=== PATIENT | female | born 1945 | race Caucasian/White ===

== ENCOUNTER 2021-03-05 10:17 | Emergency (ER) | payer MEDICARE, OTHER, SELFPAY ==
[2021-03-05 10:20] VITALS: BP 174/91; PULSE 78; RESP 18; TEMP 36.2; O2SAT 99
--- NOTE | 2021-03-05 10:26 | DI.CT.S_ITS ---
PROCEDURE: CT HEAD/BRAIN WO CON INDICATIONS: Fall, left forehead hit table w/ deep lac. TECHNIQUE: Noncontrast 4.5 mm thick angled axial sections acquired from the foramen magnum to the vertex, with coronal and sagittal reformats. For radiation dose reduction, the following was used: automated exposure control, adjustment of mA and/or kV according to patient size. COMPARISON: None. FINDINGS: Image quality: Excellent. CSF spaces: Basal cisterns are patent. No extra-axial fluid collections. The ventricles are symmetric in size and shape. Brain: No intracranial bleeds or masses. There is cerebral volume loss for age, with resultant ventricular and sulcal prominence. There are periventricular and deep white matter chronic small vessel ischemic changes. There is intracranial internal carotid artery atherosclerosis. Skull and face: Calvarium and visualized facial bones appear intact, without suspicious lesions. Sinuses: Visualized sinuses and mastoids are clear. IMPRESSION: No acute intracranial abnormality. Dictated by: Bimal Ochoa M.D. on 03/05/2021 at 10:39 Approved by: Bimal Ochoa M.D. on 03/05/2021 at 10:45
[2021-03-05] MEDS: TET,DIPH,PERTUSS(ACELL),VAC/PF 0.5 ML SYRINGE IM (10:35)
--- NOTE | 2021-03-05 10:46 | ED.HEATRA ---
HPI - Head Injury General Chief complaint: Head Injury Stated complaint: fall last night/gash on forehead Time Seen by Provider: 03/05/21 10:32 Source: patient and family Mode of arrival: Ambulatory Limitations: no limitations History of Present Illness HPI Narrative: The patient was given a bed about 4:00 a.m. this morning to go the bathroom. She lost her balance and fell against a bedside table. She sustained a left forehead laceration. She denies dizziness, visual changes, focal neurologic deficits. There is no LOC. She has no confusion. She is not anticoagulated. She has no visual changes. She has no bleeding from her nose, mouth or ears. She denies neck pain. She has no peripheral weakness. There were no other injuries. Related Data Allergies Allergy/AdvReac Type Severity Reaction Status Date / Time No Known Drug Allergies Allergy Verified 03/05/21 10:27 Review of Systems Constitutional Constitutional: Denies body ache(s), Denies fatigue, Denies fever(s) and Reports headache(s) Eyes Eyes: Denies change in vision Comments: No obvious sign injury ENT Ears, Nose, Mouth, and Throat: Denies dizziness, Reports headache(s), Denies mouth lesions, Denies mouth pain, Denies nasal trauma and Denies neck pain Comments: Left forehead laceration. Left forehead and left periorbital contusion. Cardiovascular Cardiovascular: Denies chest pain, Denies syncope, Denies rapid heart rate and Denies dyspnea Respiratory Respiratory: Denies cough and Denies dyspnea Musculoskeletal Musculoskeletal: Denies neck pain Integumentary/Breasts Skin/Breast: Reports as per HPI Neurologic Neurologic: Denies dizziness, Denies syncope and Reports headache(s) Comments: No focal weakness or unsteadiness. Endocrine Endocrine: Denies fatigue Patient History Social History Smoking Status: Never smoker Smoking Status: Never smoker alcohol intake frequency: 0-2 drinks per day Substance Use Type: does not use Exam Initial Vital Signs Initial Vital Signs: Vital Signs Temperature 97.1 F L 03/05/21 10:20 Pulse Rate 78 03/05/21 10:20 Respiratory Rate 18 03/05/21 10:20 Blood Pressure 174/91 H 03/05/21 10:20 Pulse Oximetry 99 03/05/21 10:20 Const General: cooperative, healthy appearing and comfortable [facility] Head: other (5 cm Left forehead laceration) Ears: TM's normal bilaterally Nose: external nose normal and nares normal Mouth: oral mucosae normal Teeth and gingiva: dentition normal Throat: posterior oropharynx normal Eyes Pupils: PERRL EOM: EOM intact bilaterally Other: Left periorbital contusion. Procedures Laceration Repair Laceration 1: Time of procedure: 11:22 Site: face (Left forehead) Size (cm): 5 Description: linear Depth: simple, single layer Local Anesthetic: lidocaine 1% Amount of anesthesia used (mL): 4 Pre-repair: wound explored and irrigated extensively Skin layer closed with: nylon Size (cm): 5-0 Number of sutures: 5 Technique: simple, interrupted Course Course Course Narrative: After laceration repair, the wound was cleansed and bandaged by the nurse prior to discharge. Orders Ordered: ED Orders 03/05/21 10:26 CT head/brain wo con Stat Discontinued Medications Acetaminophen (Acetaminophen 325 Mg Tablet) 650 mg PO NOW ONE Stop: 03/05/21 12:00 Last Admin: 03/05/21 12:03 Dose: 650 mg Documented by: BARBY Bacitracin (Bacitracin Oint 0.9 Gm Pckt) 1 applic TOP NOW ONE Stop: 03/05/21 11:47 Last Admin: 03/05/21 12:03 Dose: 1 applic Documented by: BARBY Diphtheria/Tetanus/Acell Pertussis (Tet,Diph,Pertuss(Acell),Vac/Pf 0.5 Ml Syringe) 0.5 ml IM .ONCE ONE Stop: 03/05/21 10:27 Last Admin: 03/05/21 10:35 Dose: 0.5 ml Documented by: AMINA Lidocaine HCl (Lidocaine 1% (Pf)) 4 ml INJ NOW ONE Stop: 03/05/21 10:48 Last Admin: 03/05/21 10:55 Dose: 4 ml Documented by: AMINA Vital Signs Vital signs: Vital Signs - 8 hr 03/05/21 12:06 Pulse Rate 71 Respiratory Rate 18 Blood Pressure 143/67 H Pulse Oximetry 100 MDM - Head Injury Imaging Data CT scan - head: Radiologist's Impression: No acute intracranial process identified. Discharge Plan Departure Patient Disposition: Home Clinical Impression: Forehead laceration Qualifiers: Encounter type: initial encounter Qualified Code(s): S01.81XA - Laceration without foreign body of other part of head, initial encounter Instructions: DI for Laceration Repair Activity Restrictions/Additional Instructions: Keep the bandage on for 24 hours. After the bandages off he may bathe normally. Tylenol every 4 hours as needed for pain. I recommend applying ice packs over the site frequently for the next 2 days. Follow-up with your doctor in 7-10 days for suture removal. Return here as needed.
[2021-03-05] MEDS: LIDOCAINE 1% (PF) 4 ML INJ (10:55)
[2021-03-05] MEDS: BACITRACIN OINT 0.9 GM PCKT 1 APPLIC TOP (12:03)
[2021-03-05] MEDS: ACETAMINOPHEN 325 MG TABLET 650 MG PO (12:03)
[2021-03-05 12:06] VITALS: BP 143/67; PULSE 71; RESP 18; O2SAT 100
== END 2021-03-05 12:07 | disposition home or self-care (01) ==
PROVIDERS: Emergency Provider Emergency Medicine
DX: S01.81XA Laceration without foreign body of other part of head, initial encounter (principal); W01.190A Fall on same level from slipping, tripping and stumbling with subsequent striking against furniture, initial encounter; Z23 Encounter for immunization
CPT/HCPCS: 12052; 70450; 90471; 99284; 90715

== ENCOUNTER 2022-06-03 12:48 | Emergency (ER) | payer OTHER, SELFPAY ==
[2022-06-03] VITALS (11 sets, daily range): BP systolic 119–168; BP diastolic 57–89; PULSE 62–74; RESP 19–36; TEMP 36.1; O2SAT 98–100; BMI 32.1
--- NOTE | 2022-06-03 13:29 | DI.RAD.S_ITS ---
PROCEDURE: XR CHEST 1V INDICATIONS: chest pain TECHNIQUE: One view of the chest was acquired. COMPARISON: None. FINDINGS: Surgical changes and devices: Right shoulder arthroplasty is partially seen. Lungs and pleura: Mild diffuse lung disease. No dense consolidation or pleural effusion. Mediastinum: Mediastinal contours appear normal. Heart size is normal. Bones and chest wall: No suspicious bony lesions. Overlying soft tissues appear unremarkable. IMPRESSION: Mild diffuse lung disease could represent edema or atypical infection. Consider future imaging surveillance to assess for resolution. No focal consolidation or effusion. Dictated by: Topher Owens M.D. on 06/03/2022 at 14:03 Approved by: Topher Owens M.D. on 06/03/2022 at 14:04
[2022-06-03 13:55] LABS: Add Manual Diff / Slide Review NO; Basophils Absolute Auto 0 /uL (0-100); Basophils Percent Auto 0.7 % (0-2); Eosinophils Absolute Auto 100 /uL (0-450); Eosinophils Percent Auto 1.9 % (2-4); Hematocrit 34.9 % (36-46); Hemoglobin 11.8 g/dL (12.0-16.0); Lymphocytes Absolute Auto 900 /uL (1100-4500); Lymphocytes Percent Auto 25.8 % (25-40); Mean Corpuscular HGB Conc 33.7 % (30-36); Mean Corpuscular Hemoglobin 31.4 PG (26-34); Monocytes Absolute Auto 300 /uL (0-900); Monocytes Percent Auto 9.6 % (3-14); Neutrophils Absolute Auto 2100 /uL (1500-7000); Platelet Count 117 X10^3/uL (150-400); Red Blood Cell Count 3.75 X10^6/uL (4.0-5.2); Red Cell Distribution Width 14.1 % (11.6-14.8); White Blood Cell Count 3.4 X10^3/uL (4.5-11.0)
[2022-06-03 14:01] LABS: Prothrombin Time 11.9 SECONDS (10.1-12.7)
[2022-06-03 14:04] LABS: PTT Partial Thromboplastin Tim 37 SECONDS (26-36)
[2022-06-03 14:05] LABS: Alanine Aminotransferase 29 IU/L (<35); Albumin 4.2 g/dL (3.5-5.0); Albumin Globulin Ratio 1.4 (1.0-2.8); Alkaline Phosphatase 92 U/L (38-126); Aspartate Aminotransferase 38 IU/L (14-36); Bilirubin Total 0.9 mg/dL (0.2-1.3); Blood Urea Nitrogen 23 mg/dL (7-17); Calcium 8.6 mg/dL (8.4-10.2); Carbon Dioxide 27 mmol/L (22-32); Chloride 104 mmol/L (98-107); Estimated Glomerular Filt Rate > 60 mL/min (>60); Globulin 3.1 g/dL (1.7-4.1); Glucose 93 mg/dL (80-110); HEMOLYSIS < 15 (0-50); Lipase 151 U/L (23-300); Magnesium 2.3 mg/dL (1.6-2.3); Potassium 2.9 mmol/L (3.4-5.1); Sodium 143 mmol/L (137-145); Total Protein 7.3 g/dL (6.3-8.2)
[2022-06-03 14:11] LABS: Creatine Kinase 101 U/L (30-135)
[2022-06-03 14:17] LABS: Troponin I < 0.012 ng/mL (0.01-0.034)
[2022-06-03 14:26] LABS: CKMB % Relative Index 1.1 % (1.5-5.0)
[2022-06-03 14:54] LABS: NT-proBNP (BNP-Adult 18+) 607 pg/mL (<450)
[2022-06-03] MEDS: POTASSIUM CHLORIDE 20 MEQ/15 ML UDC 40 MEQ PO (16:05)
--- NOTE | 2022-06-03 16:26 | PC.NURSE ---
When giving patient medication I noted that the patient had rapid uncontrolled blinking occuring with left eye. Patient stated that they have facial spasms and gets Botox to stop them but that they are normally only on the right and never has occurred on the left. I informed Dr. Bradshaw and no new orders at this time.
[2022-06-03 16:40] LABS: COVID19 -Nasal RAPID Negative (Negative)
--- NOTE | 2022-06-03 17:56 | ED.DIZZY ---
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 She is visiting from [place]. She reports that she woke up this morning and immediately upon standing up she was little dizzy lasted for couple minutes and then resolved. She did not pass out or lose consciousness. She denies any chest pain or shortness of breath. She reports a 6 lb weight gain over a couple of days. She takes torsemide 60 mg daily 40 in the morning and 20 in the afternoon she is also on spironolactone. She reports that she is eating healthy because her sister is a ?health freak.? She denies any increasing abdominal swelling, but does report a definite increase in lower extremity edema. She says that she always has swelling in her legs but usually this bad. She has no orthopnea or exertional dyspnea no palpitations chest pain fever chills her other symptoms. Related Data Allergies Allergy/AdvReac Type Severity Reaction Status Date / Time No Known Drug Allergies Allergy Verified 03/05/21 10:27 Review of Systems Review of Systems ROS Unobtainable: All systems reviewed & are unremarkable except as noted in HPI and below Patient History Social History Smoking Status: Former smoker Smoking Status: Former smoker tobacco type: cigarettes alcohol intake frequency: 0-2 drinks per day Substance Use Type: does not use Exam Initial Vital Signs Initial Vital Signs: Vital Signs Temperature 96.9 F L 06/03/22 13:31 Pulse Rate 74 06/03/22 13:31 Respiratory Rate 22 06/03/22 13:31 Blood Pressure 136/68 06/03/22 13:31 Pulse Oximetry 99 06/03/22 13:31 Oxygen Delivery Method 06/03/22 13:31 GENERAL: Alert pleasant 68-year-old female and in no acute distress. HEENT: Head atraumatic,EOMI, pupils reactive, face symmetric, moist mucous membranes CARDIOVASCULAR: Regular rate and rhythm without murmurs, rubs or gallops. RESPIRATORY: Breath sounds equal bilaterally, no wheezes rales or rhonchi. ABDOMEN: Soft, nontender. Normoactive bowel sounds all 4 quadrants. No guarding or rebound. EXTREMITIES: Normal range of motion, no clubbing. +3 pitting edema. Neurovascularly intact NEUROLOGICAL: Alert and oriented x4.Normal gait and speech. SKIN: Warm, dry, no laceration, no petechiae, no rashes or lesions. Course Orders Ordered: ED Orders 06/03/22 16:10 COVID19 -Nasal RAPID/Pre-Proc Stat Discontinued Medications Aspirin (Aspirin 81 Mg Chew Tab) 324 mg PO NOW ONE Stop: 06/03/22 13:30 Last Admin: 06/03/22 13:47 Dose: Not Given Documented By: CHLOE Furosemide 60 mg/ Sodium (Chloride) 56 mls @ 112 mls/hr IV NOW ONE Stop: 06/03/22 18:15 Last Admin: 06/03/22 18:21 Dose: 112 mls/hr Documented By: CHLOE(2) Potassium Chloride (Potassium Chloride 20 Meq/15 Ml Udc) 40 meq PO NOW ONE Stop: 06/03/22 15:47 Last Admin: 06/03/22 16:05 Dose: 40 meq Documented By: RB Vital Signs Vital signs: Vital Signs - 8 hr 06/03/22 15:30 06/03/22 15:30 06/03/22 16:00 Pulse Rate 62 70 Respiratory Rate Blood Pressure 139/75 Pulse Oximetry 100 99 Oxygen Delivery Method 06/03/22 16:01 06/03/22 16:01 06/03/22 16:07 Pulse Rate 66 67 Respiratory Rate 19 Blood Pressure 164/70 H Pulse Oximetry 99 100 Oxygen Delivery Method 06/03/22 16:07 06/03/22 16:30 06/03/22 16:30 Pulse Rate 67 Respiratory Rate 29 H Blood Pressure 139/65 119/62 Pulse Oximetry 98 Oxygen Delivery Method 06/03/22 17:00 06/03/22 17:00 06/03/22 17:30 Pulse Rate 64 Respiratory Rate 35 H Blood Pressure 125/57 L 123/60 Pulse Oximetry 99 Oxygen Delivery Method 06/03/22 17:30 06/03/22 18:00 06/03/22 18:00 Pulse Rate 65 67 Respiratory Rate 28 H Blood Pressure 138/65 Pulse Oximetry 100 99 Oxygen Delivery Method 06/03/22 18:30 06/03/22 18:30 Pulse Rate 67 Respiratory Rate 36 H Blood Pressure 119/89 Pulse Oximetry 99 Oxygen Delivery Method Room Air MDM - Dizziness Lab Data 06/03/22 13:44 06/03/22 13:44 Labs: Lab Results 06/03/22 06/03/22 06/03/22 Range/Units 13:44 13:44 13:44 WBC 3.4 L (4.5-11.0) X10^3/uL RBC 3.75 L (4.0-5.2) X10^6/uL Hgb 11.8 L (12.0-16.0) g/dL Hct 34.9 L (36-46) % MCV 93.0 (80-100) fL MCH 31.4 (26-34) PG MCHC 33.7 (30-36) % RDW 14.1 (11.6-14.8) % Plt Count 117 L (150-400) X10^3/uL Neut % (Auto) 62.0 (50-75) % Lymph % (Auto) 25.8 (25-40) % Powell % (Auto) 9.6 (3-14) % Eos % (Auto) 1.9 L (2-4) % Baso % (Auto) 0.7 (0-2) % Neut # (Auto) 2100 (6795-0282) /uL Lymph # (Auto) 900 L (9968-6020) /uL Powell # (Auto) 300 (0-900) /uL Eos # (Auto) 100 (0-450) /uL Baso # (Auto) 0 (0-100) /uL PT 11.9 (10.1-12.7) SECONDS INR 1.0 (0.9-1.3) APTT 37 H (26-36) SECONDS Sodium 143 (137-145) mmol/L Potassium 2.9 L (3.4-5.1) mmol/L Chloride 104 (98-107) mmol/L Carbon Dioxide 27 (22-32) mmol/L BUN 23 H (7-17) mg/dL Creatinine 0.92 (0.52-1.04) mg/dL Estimated GFR > 60 (>60) mL/min BUN/Creatinine Ratio 25.0 H (6-22) Glucose 93 (80-110) mg/dL Calcium 8.6 (8.4-10.2) mg/dL Magnesium 2.3 (1.6-2.3) mg/dL Total Bilirubin 0.9 (0.2-1.3) mg/dL AST 38 H (14-36) IU/L ALT 29 (<35) IU/L Alkaline Phosphatase 92 (38-126) U/L Total Creatine Kinase 101 (30-135) U/L CK-MB (CK-2) 1.10 (<2.37) ng/mL CK-MB (CK-2) Rel Index 1.1 L (1.5-5.0) % Troponin I < 0.012 (0.01-0.034) ng/mL NT-Pro-B Natriuret Pep (<450) pg/mL Total Protein 7.3 (6.3-8.2) g/dL Albumin 4.2 (3.5-5.0) g/dL Globulin 3.1 (1.7-4.1) g/dL Albumin/Globulin Ratio 1.4 (1.0-2.8) Lipase 151 (23-300) U/L SARS-CoV-2 (PCR) (Negative) 06/03/22 06/03/22 Range/Units 13:44 16:10 WBC (4.5-11.0) X10^3/uL RBC (4.0-5.2) X10^6/uL Hgb (12.0-16.0) g/dL Hct (36-46) % MCV (80-100) fL MCH (26-34) PG MCHC (30-36) % RDW (11.6-14.8) % Plt Count (150-400) X10^3/uL Neut % (Auto) (50-75) % Lymph % (Auto) (25-40) % Powell % (Auto) (3-14) % Eos % (Auto) (2-4) % Baso % (Auto) (0-2) % Neut # (Auto) (0583-8421) /uL Lymph # (Auto) (1227-4121) /uL Powell # (Auto) (0-900) /uL Eos # (Auto) (0-450) /uL Baso # (Auto) (0-100) /uL PT (10.1-12.7) SECONDS INR (0.9-1.3) APTT (26-36) SECONDS Sodium (137-145) mmol/L Potassium (3.4-5.1) mmol/L Chloride (98-107) mmol/L Carbon Dioxide (22-32) mmol/L BUN (7-17) mg/dL Creatinine (0.52-1.04) mg/dL Estimated GFR (>60) mL/min BUN/Creatinine Ratio (6-22) Glucose (80-110) mg/dL Calcium (8.4-10.2) mg/dL Magnesium (1.6-2.3) mg/dL Total Bilirubin (0.2-1.3) mg/dL AST (14-36) IU/L ALT (<35) IU/L Alkaline Phosphatase (38-126) U/L Total Creatine Kinase (30-135) U/L CK-MB (CK-2) (<2.37) ng/mL CK-MB (CK-2) Rel Index (1.5-5.0) % Troponin I (0.01-0.034) ng/mL NT-Pro-B Natriuret Pep 607 H (<450) pg/mL Total Protein (6.3-8.2) g/dL Albumin (3.5-5.0) g/dL Globulin (1.7-4.1) g/dL Albumin/Globulin Ratio (1.0-2.8) Lipase (23-300) U/L SARS-CoV-2 (PCR) Negative (Negative) Imaging Data Chest x-ray: Radiologist's Impression: Signed Patient: Gilda Bruno MR#: [id number] : 1945 Acct:[id number] Age/Sex: 76 / F Date of Service: 06/03/22 Loc: ED Accession Number: [id number] ?? Procedure: XR chest 1V Ordering Provider: Eliza Bradshaw D.O. PROCEDURE:? XR CHEST 1V ? INDICATIONS:? chest pain ? TECHNIQUE:? One view of the chest was acquired.? ? COMPARISON:? None. ? FINDINGS:? ? Surgical changes and devices:? Right shoulder arthroplasty is partially seen. ? Lungs and pleura:? Mild diffuse lung disease.? No dense consolidation or pleural effusion. ? Mediastinum:? Mediastinal contours appear normal.? Heart size is normal.? ? Bones and chest wall:? No suspicious bony lesions.? Overlying soft tissues appear unremarkable.? ? IMPRESSION:? Mild diffuse lung disease could represent edema or atypical infection.? Consider future imaging surveillance to assess for resolution. No focal consolidation or effusion. ? ? Dictated by: Topher Owens M.D. on 06/03/2022 at 14:03 ? ? ECG Data Interpretation: Normal sinus rhythm rate 34402 QRS 136 QTC 500 right bundle-branch block, no prior MDM Narrative Medical decision making narrative: Patient is 76-year-old female history of cirrhosis and discoid lupus presenting today with increasing lower extremity edema weight gain and some brief dizziness. She reports that dizziness has not recurred she is overall feeling well. She states that she normally takes torsemide 40 mg in the morning she is not urinating as much as she was previously. She is found to have be slightly hypokalemic potassium 2.9. She says that she only takes 8 mEq of potassium chloride 3 times a week, she is given oral potassium 40 mEq today. She is having water retention without respiratory symptoms. Will increase her diuretic over the next few days she is given a dose of 60 mg here in the ED. She is no focal deficits no need for any further imaging. Other blood work is reviewed WBC is 3.4, potassium 2.9 with normal creatinine of 0.9. BNP minimally elevated at 607 however she is symptomatic with water retention in lower extremity edema. Discharge Plan Departure Patient Disposition: Home Clinical Impression: Edema, peripheral, Acute hypokalemia Instructions: DI for Peripheral Edema -- Bilateral Activity Restrictions/Additional Instructions: *You have been diagnosed with peripheral edema, low potassium *What to do: At this time that is increase her medication to help get some water off of you. *Continue to take medications as directed Torsemide 60 mg in the morning 40 mg in the afternoon for 4 days, then return to your regular dose of 40 mg in the morning and 20 mg in the afternoon Please be sure to take her potassium chloride 8 mEq every day for the next 4 days, then take 4 times a week instead of 3 times a day *Follow up with your primary care provider in 2-3 days or call [phone] *Return to ER if you should have increasing dizziness, increasing swelling, chest pain shortness of breath fever abdominal or any new, worsening or concerning symptoms Referrals: Miscellaneous,Doctor, [Primary Care Provider] - Stand Alone Forms: Patient Portal/API
[2022-06-03] MEDS: FUROSEMIDE 60 MG in SODIUM CHLORIDE 0.9% 50 ML 112 MG IV (18:21)
== END 2022-06-03 19:00 | disposition home or self-care (01) ==
PROVIDERS: Emergency Medicine; Emergency Provider Emergency Medicine
DX: R60.0 Localized edema (principal); E87.6 Hypokalemia; R79.89 Other specified abnormal findings of blood chemistry; R07.9 Chest pain, unspecified; Z20.822 Contact with and (suspected) exposure to COVID-19
CPT/HCPCS: 36415; 71045; 80053; 82550; 82553; 83690; 83735; 83880; 84484; 85025; 85610; 85730; 87635; 93005; 96365; 99284; C9803; J1940

== ENCOUNTER 2022-12-19 22:42 | Observation (INO) | payer OTHER, SELFPAY ==
[2022-12-19 22:45] VITALS: BP 155/70; PULSE 71; RESP 18; TEMP 36.6; O2SAT 99; BMI 29.8
[2022-12-20] VITALS (10 sets, daily range): BP systolic 97–137; BP diastolic 45–65; PULSE 67–79; RESP 16–17; TEMP 35.7–36.1; O2SAT 95–100; BMI 29.2
--- NOTE | 2022-12-20 00:37 | ED.SKABFB ---
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 She states that she is been cold recently however she did just come up from [place] and is currently visiting her sister. She describes no chest pain, orthopnea, dyspnea. No overt fevers. She has been seen by wound care for the same wound does have wound packing to last for an additional 8 days. She had an ultrasound of the lower extremity 1 week ago that was unremarkable. She is not currently on antibiotics. Related Data Allergies Allergy/AdvReac Type Severity Reaction Status Date / Time No Known Drug Allergies Allergy Verified 12/19/22 22:45 Review of Systems Review of Systems Narrative: Pertinent positive and negative findings as per HPI Patient History Social History Smoking Status: Former smoker Smoking Status: Former smoker tobacco type: cigarettes alcohol intake frequency: 0-2 drinks per day Substance Use Type: does not use Exam Initial Vital Signs Initial Vital Signs: Vital Signs Temperature 97.8 F 12/19/22 22:45 Pulse Rate 71 12/19/22 22:45 Respiratory Rate 18 12/19/22 22:45 Blood Pressure 155/70 H 12/19/22 22:45 Pulse Oximetry 99 12/19/22 22:45 Oxygen Delivery Method Room Air 12/19/22 22:45 General: Frail-appearing woman, chronically ill but in no acute distress. Able to give a complete and coherent history. HEENT: Moist mucous membranes, normal sclera with reactive pupils, right-sided facial muscle spasms Neck: No JVD, supple Respiratory: Lungs are clear to auscultation, no wheezing no rales no rhonchi. Full and symmetrical air movement Cardiac: Regular rate and rhythm no murmurs no bruits Abdomen: Soft, nontender, good bowel tones, no flank pain Skin: Warm and dry, no rashes Neurologic: Grossly neurologically intact with no obvious asymmetries or abnormalities beyond the right-sided facial spasms Extremities: Right leg with 3 x 3 cm wound into subcutaneous layers the anterior kendrick. There is swelling of the entire calf with erythema from the dorsum of the foot extending up to the popliteal fossa. There is no additional skin breakdown and no skin weeping Psych: Cooperative, appropriate insight and affect Course Orders Ordered: ED Orders 12/20/22 00:40 CRP [C-Reactive Protein Quant] Stat Complete Blood Count AUTO DIFF Stat Comprehensive Metabolic Panel Stat Erythrocyte Sedimentation Rate Stat Lactate (Lactic Acid) Stat NT-proBNP (BNP-Adult 18+) Stat Procalcitonin Stat 12/20/22 00:50 Blood Culture Stat 12/20/22 00:54 XR tibia fibula RT 2V Stat 12/20/22 00:55 Urinalysis and Microscopic Stat Vancomycin HCl/Dextrose (Vancomycin) 1,500 mg in 300 mls @ 150 mls/hr IV NOW ONE Stop: 12/20/22 03:59 Last Admin: 12/20/22 01:31 Dose: 150 mls/hr Documented By: SALIMA Vancomycin HCl (Vancomycin) 1,000 mg in 200 mls @ 200 mls/hr IV Q24H STEPHANY Discontinued Medications Ceftriaxone Sodium 2,000 mg/ (Sodium Chloride) 100 mls @ 200 mls/hr IV NOW ONE Stop: 12/20/22 00:55 Last Infusion: 12/20/22 01:31 Dose: 0 mls/hr Documented By: Admin: 12/20/22 01:00 Dose: 200 mls/hr Documented By: Vancomycin HCl (Vancomycin Per Pharmacy) 1 request MISC NOW ONE Stop: 12/20/22 00:55 Vital Signs Vital signs: Vital Signs - 8 hr 12/19/22 22:45 12/20/22 01:27 12/20/22 01:28 Temperature 97.8 F Pulse Rate 71 79 Respiratory Rate 18 Blood Pressure 155/70 H Pulse Oximetry 99 98 98 Oxygen Delivery Method Room Air 12/20/22 01:28 12/20/22 01:30 12/20/22 01:30 Temperature Pulse Rate 77 Respiratory Rate 16 Blood Pressure 137/65 129/61 Pulse Oximetry 100 Oxygen Delivery Method Room Air MDM - Skin/Abscess/Foreign Bdy Lab Data 12/20/22 00:40 12/20/22 00:40 Labs: Lab Results 12/20/22 12/20/22 12/20/22 Range/Units 00:40 00:40 00:40 WBC 4.9 (4.5-11.0) X10^3/uL RBC 3.33 L (4.0-5.2) X10^6/uL Hgb 11.1 L (12.0-16.0) g/dL Hct 31.7 L (36-46) % MCV 95.1 (80-100) fL MCH 33.2 (26-34) PG MCHC 34.9 (30-36) % RDW 14.8 (11.6-14.8) % Plt Count 129 L (150-400) X10^3/uL Neut % (Auto) 67.6 (50-75) % Lymph % (Auto) 20.6 L (25-40) % [place] % (Auto) 10.2 (3-14) % Eos % (Auto) 1.1 L (2-4) % Baso % (Auto) 0.5 (0-2) % Neut # (Auto) 3300 (3278-3727) /uL Lymph # (Auto) 1000 L (6511-5805) /uL [place] # (Auto) 500 (0-900) /uL Eos # (Auto) 100 (0-450) /uL Baso # (Auto) 0 (0-100) /uL ESR 60 H (0-20) MM/HR Sodium 137 (137-145) mmol/L Potassium 4.1 (3.4-5.1) mmol/L Chloride 104 (98-107) mmol/L Carbon Dioxide 21 L (22-32) mmol/L BUN 41 H (7-17) mg/dL Creatinine 1.30 H (0.52-1.04) mg/dL Estimated GFR 42 L (>60) mL/min BUN/Creatinine Ratio 31.5 H (6-22) Glucose 109 (80-110) mg/dL Lactate 1.0 (0.7-2.1) mmol/L Calcium 8.9 (8.4-10.2) mg/dL Total Bilirubin 0.6 (0.2-1.3) mg/dL AST 38 H (14-36) IU/L ALT 38 H (<35) IU/L Alkaline Phosphatase 95 (38-126) U/L C-Reactive Protein 2.1 H (<1.0) mg/dL NT-Pro-B Natriuret Pep (<450) pg/mL Total Protein 7.2 (6.3-8.2) g/dL Albumin 4.0 (3.5-5.0) g/dL Globulin 3.2 (1.7-4.1) g/dL Albumin/Globulin Ratio 1.3 (1.0-2.8) Procalcitonin (<0.5) ng/mL 12/20/22 Range/Units 00:40 WBC (4.5-11.0) X10^3/uL RBC (4.0-5.2) X10^6/uL Hgb (12.0-16.0) g/dL Hct (36-46) % MCV (80-100) fL MCH (26-34) PG MCHC (30-36) % RDW (11.6-14.8) % Plt Count (150-400) X10^3/uL Neut % (Auto) (50-75) % Lymph % (Auto) (25-40) % [place] % (Auto) (3-14) % Eos % (Auto) (2-4) % Baso % (Auto) (0-2) % Neut # (Auto) (0261-5003) /uL Lymph # (Auto) (2672-3328) /uL [place] # (Auto) (0-900) /uL Eos # (Auto) (0-450) /uL Baso # (Auto) (0-100) /uL ESR (0-20) MM/HR Sodium (137-145) mmol/L Potassium (3.4-5.1) mmol/L Chloride (98-107) mmol/L Carbon Dioxide (22-32) mmol/L BUN (7-17) mg/dL Creatinine (0.52-1.04) mg/dL Estimated GFR (>60) mL/min BUN/Creatinine Ratio (6-22) Glucose (80-110) mg/dL Lactate (0.7-2.1) mmol/L Calcium (8.4-10.2) mg/dL Total Bilirubin (0.2-1.3) mg/dL AST (14-36) IU/L ALT (<35) IU/L Alkaline Phosphatase (38-126) U/L C-Reactive Protein (<1.0) mg/dL NT-Pro-B Natriuret Pep 363 (<450) pg/mL Total Protein (6.3-8.2) g/dL Albumin (3.5-5.0) g/dL Globulin (1.7-4.1) g/dL Albumin/Globulin Ratio (1.0-2.8) Procalcitonin 0.16 (<0.5) ng/mL MDM Narrative Medical decision making narrative: CC: Right lower extremity wound, increasing edema and redness Complicating co-morbidities: Chronic lower extremity edema, 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 Pertinent findings: White blood cell count is 4.9 without significant left shift Chronic stable anemia CBC shows slight bump in creatinine from 0.9 up to 1.3. Stable AST mild increase in ALT C-reactive protein is elevated at 2.1 Sed rate is elevated at 60 Lactic acid is not elevated Imaging studies independently reviewed: X-ray of the lower extremity shows no subcutaneous gas or bony erosion Consultations: Discussed with admitting hospitalist Service, Treatments: IV ceftriaxone and vancomycin Discussion: 77-year-old woman with chronic right anterior kendrick wound that has been appropriately treated with outpatient wound care and dressing changes. Patient has increased her torsemide from 20 mg up to 40 mg to try to compensate the increased edema with slight increase in creatinine and BUN. No fevers or signs of sepsis at this time. The leg is increasingly swollen with a normal venous ultrasound done 1 week ago but erythema now extending well beyond chronic venous stasis changes down toward the dorsum of the foot and up toward the knee itself. I believe that she would benefit from at least 24 hours of IV antibiotics and help with keeping the leg elevated. At this point she has doubled up on the outpatient torsemide with slight increase in creatinine so will not add additional Lasix this evening. She is willing to stay in hospital and may well benefit from wound care consult in the hospital to make sure current care is appropriate. Discharge Plan Departure Patient Disposition: Admitted as Observation Clinical Impression: Cellulitis Qualifiers: Site of cellulitis: extremity Site of cellulitis of extremity: lower extremity Laterality: right Qualified Code(s): L03.115 - Cellulitis of right lower limb
--- NOTE | 2022-12-20 00:54 | DI.RAD.S_ITS ---
PROCEDURE: XR TIBIA FUBULA RT 2V INDICATIONS: soft tissue infection TECHNIQUE: 2 views of the tibia and fibula were acquired. COMPARISON: None. FINDINGS: Bones: No fractures or dislocations. No suspicious bony lesions. No bony erosion. Soft tissues: No suspicious soft tissue calcifications or masses. No subcutaneous gas. IMPRESSION: No subcutaneous gas or bony erosion. Dictated by: Rex Serrano M.D. on 12/20/2022 at 1:30 Approved by: Rex Serrano M.D. on 12/20/2022 at 1:31
[2022-12-20] MEDS: cefTRIAXone 2,000 MG in SODIUM CHLORIDE 0.9% 100 ML 200 MG IV (01:00)
[2022-12-20 01:14] LABS: Alanine Aminotransferase 38 IU/L (<35); Albumin Globulin Ratio 1.3 (1.0-2.8); Alkaline Phosphatase 95 U/L (38-126); Aspartate Aminotransferase 38 IU/L (14-36); BUN Creatinine Ratio 31.5 (6-22); Bilirubin Total 0.6 mg/dL (0.2-1.3); Blood Urea Nitrogen 41 mg/dL (7-17); C-Reactive Protein Quant 2.1 mg/dL (<1.0); Calcium 8.9 mg/dL (8.4-10.2); Carbon Dioxide 21 mmol/L (22-32); Chloride 104 mmol/L (98-107); Estimated Glomerular Filt Rate 42 mL/min (>60); Globulin 3.2 g/dL (1.7-4.1); Glucose 109 mg/dL (80-110); HEMOLYSIS < 15 (0-50); Potassium 4.1 mmol/L (3.4-5.1); Sodium 137 mmol/L (137-145); Total Protein 7.2 g/dL (6.3-8.2)
[2022-12-20 01:20] LABS: NT-proBNP (BNP-Adult 18+) 363 pg/mL (<450)
[2022-12-20 01:23] LABS: Erythrocyte Sedimentation Rate 60 MM/HR (0-20)
[2022-12-20 01:24] LABS: Add Manual Diff / Slide Review NO; Basophils Absolute Auto 0 /uL (0-100); Basophils Percent Auto 0.5 % (0-2); Eosinophils Absolute Auto 100 /uL (0-450); Eosinophils Percent Auto 1.1 % (2-4); Hematocrit 31.7 % (36-46); Hemoglobin 11.1 g/dL (12.0-16.0); Lymphocytes Absolute Auto 1000 /uL (1100-4500); Lymphocytes Percent Auto 20.6 % (25-40); Mean Corpuscular HGB Conc 34.9 % (30-36); Mean Corpuscular Hemoglobin 33.2 PG (26-34); Mean Corpuscular Volume 95.1 fL (80-100); Monocytes Absolute Auto 500 /uL (0-900); Monocytes Percent Auto 10.2 % (3-14); Neutrophils Absolute Auto 3300 /uL (1500-7000); Neutrophils Percent Auto 67.6 % (50-75); Platelet Count 129 X10^3/uL (150-400); Red Blood Cell Count 3.33 X10^6/uL (4.0-5.2); Red Cell Distribution Width 14.8 % (11.6-14.8); White Blood Cell Count 4.9 X10^3/uL (4.5-11.0)
[2022-12-20 01:28] LABS: Procalcitonin 0.16 ng/mL (<0.5)
[2022-12-20] MEDS: VANCOMYCIN 1,500 MG/300 ML PIGGYBACK 150 MG IV (01:31)
--- NOTE | 2022-12-20 03:58 | P.HP_ITS ---
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 The patient has a chronic wound on her right kendrick in the last 6-weeks treated in the wound clinic and have wound packing for the last 8 days. She also had ultrasound on lower extremities which was negative for DVT. Has not been taken any antibiotics. She is traveling from [place], currently visiting her sister. Denies any other symptoms besides feeling cold and feverish. In the ER she was started on ceftriaxone and vancomycin. [facility] Social History Smoking Status: Former smoker Meds Home Medications and Allergies Home Medications Medication Instructions Recorded Confirmed Type torsemide 20 mg tablet 40 mg PO BID 12/20/22 12/20/22 History Allergies Allergy/AdvReac Type Severity Reaction Status Date / Time No Known Drug Allergies Allergy Verified 12/19/22 22:45 Review of Systems Review of Systems ROS: Yes All systems reviewed with the patient and are negative except as otherwise documented Constitutional Constitutional: Reports as per HPI and Reports system reviewed and no additional complaints, except as documented Eyes Eyes: Reports as per HPI and Reports system reviewed and no additional complaints, except as documented ENT Ears, Nose, Mouth, and Throat: Yes as per HPI and Yes system reviewed and no additional complaints, except as documented Cardiovascular Cardiovascular: Reports system reviewed and no additional complaints, except as documented Respiratory Respiratory: Reports system reviewed and no additional complaints, except as documented Gastrointestinal Gastrointestinal: Reports system reviewed and no additional complaints, except as documented Genitourinary Genitourinary: Reports system reviewed and no additional complaints, except as documented Musculoskeletal Musculoskeletal: Reports system reviewed and no additional complaints, except as documented, Reports abnormal gait and Reports numbness Neurologic Neurologic: Reports system reviewed and no additional complaints, except as documented, Reports abnormal gait, Reports confusion and Reports numbness Psychiatric Psychiatric: Reports system reviewed and no additional complaints, except as documented and Reports confusion Exam Vital Signs (past 8 hours): - 12/19/22 22:45 12/20/22 01:27 12/20/22 01:28 Temperature 97.8 F Pulse Rate 71 79 Respiratory Rate 18 Blood Pressure 155/70 H Pulse Oximetry 99 98 98 Oxygen Delivery Method Room Air Oxygen Flow Rate 12/20/22 01:28 12/20/22 01:30 12/20/22 01:30 Temperature Pulse Rate 77 Respiratory Rate 16 Blood Pressure 137/65 129/61 Pulse Oximetry 100 Oxygen Delivery Method Room Air Oxygen Flow Rate 12/20/22 02:00 12/20/22 02:00 12/20/22 02:30 Temperature Pulse Rate 73 Respiratory Rate Blood Pressure 100/50 L 103/54 L Pulse Oximetry 96 Oxygen Delivery Method Oxygen Flow Rate 12/20/22 02:30 12/20/22 03:00 12/20/22 03:00 Temperature Pulse Rate 72 69 Respiratory Rate Blood Pressure 105/54 L Pulse Oximetry 95 95 Oxygen Delivery Method Oxygen Flow Rate 12/20/22 03:35 Temperature 97 F L Pulse Rate 71 Respiratory Rate 17 Blood Pressure 118/60 Pulse Oximetry 98 Oxygen Delivery Method Oxygen Flow Rate 0 Oxygen Delivery Method Room Air Oxygen Flow Rate 0 Const General: cooperative, comfortable and well developed Orientation: alert and oriented x3 HENMT Head: normal to inspection, normocephalic and atraumatic Face and sinus: normal facial exam Mouth: oral mucosae normal and moist mucous membranes Throat: posterior oropharynx normal Eyes General: appearance normal, both eyes and all related structures Pupils: PERRL EOM: EOM intact bilaterally Neck Neck: normal visual inspection and full ROM Chest Chest: normal inspection of the chest Resp Effort & Inspection: normal respiratory effort and able to speak in complete sentences Auscultation: clear to auscultation bilaterally Cardio Palpation: normal PMI Rate: regular rate Rhythm: regular rhythm Heart Sounds: S1 normal and S2 normal GI Inspection: normal to inspection Palpation: soft and no hepatosplenomegaly Auscultation: normal bowel sounds Skin General: no rashes or lesions noted Lesions: no lesions Rashes: no rashes Trauma: no lacerations or abrasions Neuro General: patient alert, patient awake, patient oriented x3 and no focal motor deficits Cranial Nerves: CN's II-XI intact bilaterally Cognition: normal cognition Speech: speech normal Gait: normal gait Motor: muscle tone normal throughout Sensory Exam: no sensory deficits noted Extrem General: full ROM and no calf tenderness (Right kendrick diffuse erythema, tenderness and ulcer with positive discharge) Psych Appearance: grossly normal Mental Status: mental status grossly normal Speech and Movement: speech and movement normal Objective Labs 12/20/22 00:40 12/20/22 00:40 Labs: Laboratory Results - last 24 hr 12/20/22 12/20/22 12/20/22 00:40 00:40 00:40 WBC 4.9 RBC 3.33 L Hgb 11.1 L Hct 31.7 L MCV 95.1 MCH 33.2 MCHC 34.9 RDW 14.8 Plt Count 129 L Neut % (Auto) 67.6 Lymph % (Auto) 20.6 L [place] % (Auto) 10.2 Eos % (Auto) 1.1 L Baso % (Auto) 0.5 Neut # (Auto) 3300 Lymph # (Auto) 1000 L [place] # (Auto) 500 Eos # (Auto) 100 Baso # (Auto) 0 ESR 60 H Sodium 137 Potassium 4.1 Chloride 104 Carbon Dioxide 21 L BUN 41 H Creatinine 1.30 H Estimated GFR 42 L BUN/Creatinine Ratio 31.5 H Glucose 109 Lactate 1.0 Calcium 8.9 Total Bilirubin 0.6 AST 38 H ALT 38 H Alkaline Phosphatase 95 C-Reactive Protein 2.1 H NT-Pro-B Natriuret Pep Total Protein 7.2 Albumin 4.0 Globulin 3.2 Albumin/Globulin Ratio 1.3 Procalcitonin 12/20/22 00:40 WBC RBC Hgb Hct MCV MCH MCHC RDW Plt Count Neut % (Auto) Lymph % (Auto) [place] % (Auto) Eos % (Auto) Baso % (Auto) Neut # (Auto) Lymph # (Auto) [place] # (Auto) Eos # (Auto) Baso # (Auto) ESR Sodium Potassium Chloride Carbon Dioxide BUN Creatinine Estimated GFR BUN/Creatinine Ratio Glucose Lactate Calcium Total Bilirubin AST ALT Alkaline Phosphatase C-Reactive Protein NT-Pro-B Natriuret Pep 363 Total Protein Albumin Globulin Albumin/Globulin Ratio Procalcitonin 0.16 Assessment & Plan Assessment and plan (1) Cellulitis: Qualifiers: Laterality: right Site of cellulitis: extremity Site of cellulitis of extremity: lower extremity Qualified Code(s): L03.115 - Cellulitis of right lower limb Status: Acute Plan: -Antibiotics of Vancomycin, ceftriaxone, -Blood cultures times 2, wound cultures, wound care. -Elevate the affected area/limb -Pain medications when necessary, -check for MRSA and if negative, can DC vancomycin (2) Acute kidney injury: Status: Acute Plan: -hold diuretics -monitor UOP. -daily BMP -Avoid any nephrotoxic agents, including NSAIDs -Continue to monitor BP. 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 I have utilized all available resources to obtain, update, or review the patient?s current medications. [If Yes, STOP here]: Yes
[2022-12-20 05:19] LABS: Appearance Urine UA CLEAR; Bilirubin Urine UA NEGATIVE (NEGATIVE); Color Urine UA YELLOW; Glucose Urine UA NEGATIVE (Negative); Ketones Urine UA NEGATIVE (NEGATIVE); Leukocyte Esterase Urine UA NEGATIVE (NEGATIVE); Nitrite Urine UA NEGATIVE (Negative); Occult Blood Urine UA NEGATIVE (Negative); Protein Urine UA NEGATIVE (Negative); Urobilinogen Urine UA 0.2 E.U./dL (0.2)
[2022-12-20 05:28] LABS: Bacteria Urine None Seen; Culture Indicated Urine Cult Not Indicated; RBC Urine None Seen (0-5/HPF); Squamous Epithelial Cell Urine None Seen (0-5/HPF); WBC Urine None Seen (0-5/HPF)
[2022-12-20 05:50] LABS: BUN Creatinine Ratio 33.3 (6-22); Blood Urea Nitrogen 38 mg/dL (7-17); Calcium 8.3 mg/dL (8.4-10.2); Carbon Dioxide 20 mmol/L (22-32); Chloride 107 mmol/L (98-107); Estimated Glomerular Filt Rate 49 mL/min (>60); Glucose 101 mg/dL (80-110); HEMOLYSIS < 15 (0-50); Sodium 137 mmol/L (137-145)
--- NOTE | 2022-12-20 06:04 | PC.WOUNDPHOT ---
Skin assessment completed w/ Evelyn Carranza RN. xeroform w/ nonadhesive dressing wrapped in kerlix.
[2022-12-20 06:20] LABS: MRSA (Nasal) PCR Not Detected (Not Detect)
--- NOTE | 2022-12-20 07:11 | P.HP_ITS ---
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 The patient has a chronic wound on her right kendrick in the last 6-weeks treated in the wound clinic and have wound packing for the last 8 days. She also had ultrasound on lower extremities which was negative for DVT. Has not been taken any antibiotics. She is traveling from [place], currently visiting her sister. Denies any other symptoms besides feeling cold and feverish. In the ER she was started on ceftriaxone and vancomycin. [facility] Social History household members: spouse and children Smoking Status: Former smoker alcohol intake: never Meds Home Medications and Allergies Home Medications Medication Instructions Recorded Confirmed Type clobetasol 0.05 % topical cream 1 applic topical BID PRN Skin 12/20/22 12/20/22 History Irritation denosumab 60 mg/mL subcutaneous mg SUBCUT [id number] 12/20/22 History syringe (Prolia) febuxostat 40 mg tablet 40 mg PO WEEKLY 12/20/22 12/20/22 History loratadine 10 mg capsule 10 mg PO DAILY 12/20/22 12/20/22 History mycophenolate mofetil 500 mg tablet 500 mg PO BID 12/20/22 12/20/22 History potassium chloride 8 mEq 8 meq PO 3XW 12/20/22 12/20/22 History capsule,extended release spironolactone 100 mg tablet 200 mg PO DAILY 12/20/22 12/20/22 History torsemide 20 mg tablet 40 mg PO BID 12/20/22 12/20/22 History Allergies Allergy/AdvReac Type Severity Reaction Status Date / Time No Known Drug Allergies Allergy Verified 12/19/22 22:45 Review of Systems Review of Systems ROS: Yes All systems reviewed with the patient and are negative except as otherwise documented Constitutional Constitutional: Reports as per HPI and Reports system reviewed and no additional complaints, except as documented Eyes Eyes: Reports as per HPI and Reports system reviewed and no additional complaints, except as documented ENT Ears, Nose, Mouth, and Throat: Yes as per HPI and Yes system reviewed and no additional complaints, except as documented Cardiovascular Cardiovascular: Reports system reviewed and no additional complaints, except as documented Respiratory Respiratory: Reports system reviewed and no additional complaints, except as documented Gastrointestinal Gastrointestinal: Reports system reviewed and no additional complaints, except as documented Genitourinary Genitourinary: Reports system reviewed and no additional complaints, except as documented Musculoskeletal Musculoskeletal: Reports system reviewed and no additional complaints, except as documented, Reports abnormal gait and Reports numbness Neurologic Neurologic: Reports system reviewed and no additional complaints, except as documented, Reports abnormal gait, Reports confusion and Reports numbness Psychiatric Psychiatric: Reports system reviewed and no additional complaints, except as documented and Reports confusion Exam Vital Signs (past 8 hours): - 12/20/22 01:27 12/20/22 01:28 12/20/22 01:28 Temperature Pulse Rate 79 Respiratory Rate Blood Pressure 137/65 Pulse Oximetry 98 98 Oxygen Delivery Method Oxygen Flow Rate 12/20/22 01:30 12/20/22 01:30 12/20/22 02:00 Temperature Pulse Rate 77 Respiratory Rate 16 Blood Pressure 129/61 100/50 L Pulse Oximetry 100 Oxygen Delivery Method Room Air Oxygen Flow Rate 12/20/22 02:00 12/20/22 02:30 12/20/22 02:30 Temperature Pulse Rate 73 72 Respiratory Rate Blood Pressure 103/54 L Pulse Oximetry 96 95 Oxygen Delivery Method Oxygen Flow Rate 12/20/22 03:00 12/20/22 03:00 12/20/22 03:35 Temperature 97 F L Pulse Rate 69 71 Respiratory Rate 17 Blood Pressure 105/54 L 118/60 Pulse Oximetry 95 98 Oxygen Delivery Method Oxygen Flow Rate 0 Oxygen Delivery Method Room Air Oxygen Flow Rate 0 Narrative Exam Narrative: GEN: no acute distress HEENT: moist mucous membranes, PERRL NECK: trachea midline, no JVD CV: regular rate and rhythm, no murmurs PULM: clear bilaterally ABD: soft, nontender, nondistended, no organomegaly EXT: RLE mid-kendrick quarter-sized stage 2 wound with surrounding erythema and swelling of kendrick and calf NEURO: awake, alert, oriented, no focal deficits Objective Labs 12/20/22 00:40 12/20/22 05:28 Labs: Laboratory Results - last 24 hr 12/20/22 12/20/22 12/20/22 00:40 00:40 00:40 WBC 4.9 RBC 3.33 L Hgb 11.1 L Hct 31.7 L MCV 95.1 MCH 33.2 MCHC 34.9 RDW 14.8 Plt Count 129 L Neut % (Auto) 67.6 Lymph % (Auto) 20.6 L [place] % (Auto) 10.2 Eos % (Auto) 1.1 L Baso % (Auto) 0.5 Neut # (Auto) 3300 Lymph # (Auto) 1000 L [place] # (Auto) 500 Eos # (Auto) 100 Baso # (Auto) 0 ESR 60 H Sodium 137 Potassium 4.1 Chloride 104 Carbon Dioxide 21 L BUN 41 H Creatinine 1.30 H Estimated GFR 42 L BUN/Creatinine Ratio 31.5 H Glucose 109 Lactate 1.0 Calcium 8.9 Total Bilirubin 0.6 AST 38 H ALT 38 H Alkaline Phosphatase 95 C-Reactive Protein 2.1 H NT-Pro-B Natriuret Pep Total Protein 7.2 Albumin 4.0 Globulin 3.2 Albumin/Globulin Ratio 1.3 Procalcitonin Urine Color Urine Appearance Urine pH Ur Specific [place] Urine Protein Urine Glucose (UA) Urine Ketones Urine Occult Blood Urine Nitrate Urine Bilirubin Urine Urobilinogen Ur Leukocyte Esterase Urine RBC Urine WBC Ur Squamous Epith Cells Urine Bacteria Ur Culture Indicated? Nasal Screen MRSA (PCR) 12/20/22 12/20/22 12/20/22 00:40 05:00 05:03 WBC RBC Hgb Hct MCV MCH MCHC RDW Plt Count Neut % (Auto) Lymph % (Auto) [place] % (Auto) Eos % (Auto) Baso % (Auto) Neut # (Auto) Lymph # (Auto) [place] # (Auto) Eos # (Auto) Baso # (Auto) ESR Sodium Potassium Chloride Carbon Dioxide BUN Creatinine Estimated GFR BUN/Creatinine Ratio Glucose Lactate Calcium Total Bilirubin AST ALT Alkaline Phosphatase C-Reactive Protein NT-Pro-B Natriuret Pep 363 Total Protein Albumin Globulin Albumin/Globulin Ratio Procalcitonin 0.16 Urine Color Yellow Urine Appearance Clear Urine pH 5.0 Ur Specific [place] 1.010 Urine Protein Negative Urine Glucose (UA) Negative Urine Ketones Negative Urine Occult Blood Negative Urine Nitrate Negative Urine Bilirubin Negative Urine Urobilinogen 0.2 Ur Leukocyte Esterase Negative Urine RBC None seen Urine WBC None seen Ur Squamous Epith Cells None seen Urine Bacteria None seen Ur Culture Indicated? Cult not indicated Nasal Screen MRSA (PCR) Not detected 12/20/22 05:28 WBC RBC Hgb Hct MCV MCH MCHC RDW Plt Count Neut % (Auto) Lymph % (Auto) [place] % (Auto) Eos % (Auto) Baso % (Auto) Neut # (Auto) Lymph # (Auto) [place] # (Auto) Eos # (Auto) Baso # (Auto) ESR Sodium 137 Potassium 4.0 Chloride 107 Carbon Dioxide 20 L BUN 38 H Creatinine 1.14 H Estimated GFR 49 L BUN/Creatinine Ratio 33.3 H Glucose 101 Lactate Calcium 8.3 L Total Bilirubin AST ALT Alkaline Phosphatase C-Reactive Protein NT-Pro-B Natriuret Pep Total Protein Albumin Globulin Albumin/Globulin Ratio Procalcitonin Urine Color Urine Appearance Urine pH Ur Specific [place] Urine Protein Urine Glucose (UA) Urine Ketones Urine Occult Blood Urine Nitrate Urine Bilirubin Urine Urobilinogen Ur Leukocyte Esterase Urine RBC Urine WBC Ur Squamous Epith Cells Urine Bacteria Ur Culture Indicated? Nasal Screen MRSA (PCR) Assessment & Plan Assessment and plan (1) Cellulitis: Qualifiers: Laterality: right Site of cellulitis: extremity Site of cellulitis of extremity: lower extremity Qualified Code(s): L03.115 - Cellulitis of right lower limb Status: Acute Plan: -with kendrick wound -changed abx to cefepime to cover pseudomonas -Dr. Rasheed wound care consulted, will order dressing changes per his recs -Elevate the affected area/limb -Pain medications when necessary, -MRSA screen negative, stopped vanc -f/u blood cultures (2) Acute kidney injury: Status: Acute Plan: -hold diuretics -monitor UOP. 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 Time Spent With Patient Time with patient: 50 to 69 minutes with 50% spent counseling/coordinating care Quality VTE Deep Vein Thrombosis/Pulmonary Embolism Present on Admission: No
[2022-12-20] MEDS: ACETAMINOPHEN 325 MG TABLET 650 MG PO (08:26)
[2022-12-20] MEDS: OXYCODONE IR 5 MG TABLET PO (08:26)
--- NOTE | 2022-12-20 09:15 | CM.DPNOTE ---
CM Initial Assessment Note Pt is a 77-year old woman who presented at the ED on 12/20 for a progressively worsening, non-healing leg wound. Payor: Cindy Foy Admitting Provider: Justo Urena Status: OBS Pt shares that she is here visiting her sister from [place], that she had 3-weeks of daily woundcare prior to her trip to [place]. The wound has been non-healing, and became progressively worse for the last few days, resulting in increased pain/redness/swelling. She is , has multiple co-morbidities that are complicating her healing trajectory. Care plan from the ED was for overnight IV Vancomycin, followed by wound cultures to determine the continued need for IV antibiotics vs. d/c home with orals. Results are still pending at time of this assessment. Met with pt, introduced self and role. Pt presents as alert, oriented, in good spirits. Will continue to monitor d/c needs over the next few days. No further needs indicated at this time. Discharge Planning/Care Management CM Discharge Assessment Start: 12/20/22 09:07 Freq: Status: Active Protocol: Document 12/20/22 09:08 DPL (Rec: 12/20/22 09:15 DPL [id number]) Discharge Planning Assessment, Assigned Installer Apprentice MARIAN Wiley DPOA/Assigned Designee Name N/A Advance Directives? Yes Advance Directives on File No History Provided By Patient Expected Length of Stay 2 Has Patient been admitted in last 30 No days? Prior Living Arrangements House Household Members spouse,children Type of transporation used prior to Relies on Others admit Comment Due to non-healing wound. Independent with ADL's Yes Is patient alert and oriented? Yes Needs Assistance With Home Chores / Shopping Caregiver for Another No Community Services used prior to Wound Care admission: Comment Pt had daily wound care for the last 3-weeks in [place], where she lives. Comment D/C needs pending the results of cultures. Results will determine whether pt will need oral or IV home antibiotics. Barriers to Discharge No Discharge Plan Home Community Services Wound Care Additional Comment Pending cultures. Whiteboard Updated in Patient Room with Yes name and ext. # of Installer Apprentice Review Status In Process Please Provide Date Initial DC 12/20/22 Assessment Was Performed
[2022-12-20] MEDS: SODIUM CHLORIDE 0.9% 1,000 ML 100 ML IV ×2 (10:30→21:11)
[2022-12-20] MEDS: CEFEPIME 2 GM in SODIUM CHLORIDE 0.9% 100 ML IV ×2 (11:40→21:16)
[2022-12-20] MEDS: HEPARIN 5,000 UNIT/ML VIAL 5000 UNIT SUBCUT ×2 (11:41→21:09)
--- NOTE | 2022-12-20 16:29 | PM.CN ---
History of Present Illness Consult details Date Patient Seen: 12/20/22 Time Patient Seen: 16:00 Chief complaint: RT LEG WOUND MOT HEALING Narrative: The patient is a 77-year-old female with discoid lupus and-who was admitted to the hospital earlier today for treatment of cellulitis of the right lower extremity. She reports that she injured her right lower leg about 6 weeks ago and was receiving wound care at a wound center in [place]. She was treated with a short course of oral antibiotics after her injury. It sounds like she was receiving dressing changes with Adaptic or Xeroform gauze. For the past couple of days she has had increased redness, pain, and swelling of her right lower extremity. She denies having any fever or chills. The patient reports that she has otherwise been doing well. She is had a good appetite and has been able to ambulate without difficulty. No other recent changes in overall health. X-rays of the right lower extremity showed no evidence for foreign body or gas in the subcutaneous tissues. Laboratory evaluation revealed a normal white count. Meds Home Medications and Allergies Home Medications Medication Instructions Recorded Confirmed Type clobetasol 0.05 % topical cream 1 applic topical BID PRN Skin 12/20/22 12/20/22 History Irritation denosumab 60 mg/mL subcutaneous mg SUBCUT [id number] 12/20/22 History syringe (Prolia) febuxostat 40 mg tablet 40 mg PO WEEKLY 12/20/22 12/20/22 History loratadine 10 mg capsule 10 mg PO DAILY 12/20/22 12/20/22 History mycophenolate mofetil 500 mg tablet 500 mg PO BID 12/20/22 12/20/22 History potassium chloride 8 mEq 8 meq PO 3XW 12/20/22 12/20/22 History capsule,extended release spironolactone 100 mg tablet 200 mg PO DAILY 12/20/22 12/20/22 History torsemide 20 mg tablet 40 mg PO BID 12/20/22 12/20/22 History Allergies Allergy/AdvReac Type Severity Reaction Status Date / Time No Known Drug Allergies Allergy Verified 12/19/22 22:45 Review of Systems Review of Systems Narrative: Negative for any recent changes in overall health except as mentioned above Cardiovascular Comments: No chest pain Respiratory Comments: No shortness of breath Musculoskeletal Comments: Swelling right lower extremity Exam Vital Signs (past 8 hours): - 12/20/22 09:35 Temperature 96.2 F L Pulse Rate 69 Respiratory Rate 16 Blood Pressure 97/45 L Pulse Oximetry 100 Oxygen Flow Rate 0 Oxygen Delivery Method Room Air Oxygen Flow Rate 0 Const Other: Well-developed well-nourished white female, alert and oriented, no apparent distress Resp Other: Nonlabored respirations Skin Other: Mild erythema right lower extremity, full-thickness open wound anterior right lower extremity with slight purulence, no fluctuance or crepitance Neuro Other: Sensation grossly intact Extrem Other: Edema right lower extremity Objective Labs 12/20/22 00:40 12/20/22 05:28 Labs: Laboratory Results - last 24 hr 12/20/22 12/20/22 12/20/22 00:40 00:40 00:40 WBC 4.9 RBC 3.33 L Hgb 11.1 L Hct 31.7 L MCV 95.1 MCH 33.2 MCHC 34.9 RDW 14.8 Plt Count 129 L Neut % (Auto) 67.6 Lymph % (Auto) 20.6 L [place] % (Auto) 10.2 Eos % (Auto) 1.1 L Baso % (Auto) 0.5 Neut # (Auto) 3300 Lymph # (Auto) 1000 L [place] # (Auto) 500 Eos # (Auto) 100 Baso # (Auto) 0 ESR 60 H Sodium 137 Potassium 4.1 Chloride 104 Carbon Dioxide 21 L BUN 41 H Creatinine 1.30 H Estimated GFR 42 L BUN/Creatinine Ratio 31.5 H Glucose 109 Lactate 1.0 Calcium 8.9 Total Bilirubin 0.6 AST 38 H ALT 38 H Alkaline Phosphatase 95 C-Reactive Protein 2.1 H NT-Pro-B Natriuret Pep Total Protein 7.2 Albumin 4.0 Globulin 3.2 Albumin/Globulin Ratio 1.3 Procalcitonin Urine Color Urine Appearance Urine pH Ur Specific [place] Urine Protein Urine Glucose (UA) Urine Ketones Urine Occult Blood Urine Nitrate Urine Bilirubin Urine Urobilinogen Ur Leukocyte Esterase Urine RBC Urine WBC Ur Squamous Epith Cells Urine Bacteria Ur Culture Indicated? Nasal Screen MRSA (PCR) 12/20/22 12/20/22 12/20/22 00:40 05:00 05:03 WBC RBC Hgb Hct MCV MCH MCHC RDW Plt Count Neut % (Auto) Lymph % (Auto) [place] % (Auto) Eos % (Auto) Baso % (Auto) Neut # (Auto) Lymph # (Auto) [place] # (Auto) Eos # (Auto) Baso # (Auto) ESR Sodium Potassium Chloride Carbon Dioxide BUN Creatinine Estimated GFR BUN/Creatinine Ratio Glucose Lactate Calcium Total Bilirubin AST ALT Alkaline Phosphatase C-Reactive Protein NT-Pro-B Natriuret Pep 363 Total Protein Albumin Globulin Albumin/Globulin Ratio Procalcitonin 0.16 Urine Color Yellow Urine Appearance Clear Urine pH 5.0 Ur Specific [place] 1.010 Urine Protein Negative Urine Glucose (UA) Negative Urine Ketones Negative Urine Occult Blood Negative Urine Nitrate Negative Urine Bilirubin Negative Urine Urobilinogen 0.2 Ur Leukocyte Esterase Negative Urine RBC None seen Urine WBC None seen Ur Squamous Epith Cells None seen Urine Bacteria None seen Ur Culture Indicated? Cult not indicated Nasal Screen MRSA (PCR) Not detected 12/20/22 05:28 WBC RBC Hgb Hct MCV MCH MCHC RDW Plt Count Neut % (Auto) Lymph % (Auto) [place] % (Auto) Eos % (Auto) Baso % (Auto) Neut # (Auto) Lymph # (Auto) [place] # (Auto) Eos # (Auto) Baso # (Auto) ESR Sodium 137 Potassium 4.0 Chloride 107 Carbon Dioxide 20 L BUN 38 H Creatinine 1.14 H Estimated GFR 49 L BUN/Creatinine Ratio 33.3 H Glucose 101 Lactate Calcium 8.3 L Total Bilirubin AST ALT Alkaline Phosphatase C-Reactive Protein NT-Pro-B Natriuret Pep Total Protein Albumin Globulin Albumin/Globulin Ratio Procalcitonin Urine Color Urine Appearance Urine pH Ur Specific [place] Urine Protein Urine Glucose (UA) Urine Ketones Urine Occult Blood Urine Nitrate Urine Bilirubin Urine Urobilinogen Ur Leukocyte Esterase Urine RBC Urine WBC Ur Squamous Epith Cells Urine Bacteria Ur Culture Indicated? Nasal Screen MRSA (PCR) [facility] Social History household members: spouse and children Tobacco & Substance Use Smoking Status: Former smoker alcohol intake: never Assessment & Plan Assessment and plan (1) Cellulitis: Qualifiers: Laterality: right Site of cellulitis: extremity Site of cellulitis of extremity: lower extremity Qualified Code(s): L03.115 - Cellulitis of right lower limb Status: Acute (2) Non-pressure chronic ulcer of left calf with fat layer exposed: Status: Acute Assessment & Plan narrative: Patient has a full-thickness open wound secondary to trauma of the right lower extremity associated with cellulitis. Recommend elevation of right leg on pillow, daily dressing changes with Hydrofera blue and use Tetra care team coordinator scheduler for light compression, obtain wound culture, continue IV antibiotics and adjust based on culture results. Follow up at wound center after discharge. Time Spent With Patient Time with patient: 30 to 49 minutes with 50% spent counseling/coordinating care
[2022-12-20] MEDS: HYDROMORPHONE 0.5 MG INJ IV ×2 (16:59→21:08)
[2022-12-20] MEDS: SENNOSIDES 8.6 MG TABLET 17.2 MG PO (21:08)
--- NOTE | 2022-12-21 04:07 | PC.NURSE ---
Wound care completed with xerofoam. Wound care dr caldwell ordered is unavailable on this floor.
[2022-12-21 04:15] VITALS: BP 120/54; PULSE 64; RESP 18; TEMP 36.2; O2SAT 98
[2022-12-21 06:39] LABS: Add Manual Diff / Slide Review NO; Basophils Absolute Auto 0 /uL (0-100); Basophils Percent Auto 0.5 % (0-2); Eosinophils Absolute Auto 100 /uL (0-450); Eosinophils Percent Auto 3.1 % (2-4); Hematocrit 31.4 % (36-46); Hemoglobin 10.8 g/dL (12.0-16.0); Lymphocytes Absolute Auto 800 /uL (1100-4500); Lymphocytes Percent Auto 34.3 % (25-40); Mean Corpuscular HGB Conc 34.4 % (30-36); Mean Corpuscular Hemoglobin 32.8 PG (26-34); Mean Corpuscular Volume 95.3 fL (80-100); Monocytes Absolute Auto 300 /uL (0-900); Neutrophils Absolute Auto 1200 /uL (1500-7000); Neutrophils Percent Auto 51.1 % (50-75); Platelet Count 96 X10^3/uL (150-400); Red Cell Distribution Width 14.4 % (11.6-14.8); White Blood Cell Count 2.4 X10^3/uL (4.5-11.0)
[2022-12-21 06:46] LABS: BUN Creatinine Ratio 24.1 (6-22); Blood Urea Nitrogen 20 mg/dL (7-17); Calcium 8.4 mg/dL (8.4-10.2); Carbon Dioxide 19 mmol/L (22-32); Chloride 114 mmol/L (98-107); Estimated Glomerular Filt Rate > 60 mL/min (>60); Glucose 91 mg/dL (80-110); HEMOLYSIS < 15 (0-50); Potassium 4.2 mmol/L (3.4-5.1); Sodium 140 mmol/L (137-145)
[2022-12-21 08:13] VITALS: BP 124/53; PULSE 55; RESP 18; TEMP 35.9; O2SAT 100
[2022-12-21] MEDS: HEPARIN 5,000 UNIT/ML VIAL 5000 UNIT SUBCUT ×2 (09:52→21:17)
[2022-12-21] MEDS: CEFEPIME 2 GM in SODIUM CHLORIDE 0.9% 100 ML IV ×2 (09:52→21:17)
--- NOTE | 2022-12-21 13:08 | P.PN_ITS ---
Subjective Subjective Interval history: Still having RLE pain when weight-bearing. Wound care evaluated and gave dressing orders. Skin surrounding wound is still warm and erythematous. Wound culture with light GNB. Exam Vital Signs (past 8 hours): - 12/21/22 08:13 Temperature 96.7 F L Pulse Rate 55 L Respiratory Rate 18 Blood Pressure 124/53 L Pulse Oximetry 100 Oxygen Flow Rate 0 Oxygen Delivery Method Room Air Oxygen Flow Rate 0 Narrative Exam Narrative: GEN: no acute distress HEENT: moist mucous membranes, PERRL NECK: trachea midline, no JVD CV: regular rate and rhythm, no murmurs PULM: clear bilaterally ABD: soft, nontender, nondistended, no organomegaly EXT: RLE mid-kendrick quarter-sized stage 2 wound with surrounding erythema and swelling of kendrick and calf NEURO: awake, alert, oriented, no focal deficits Objective Labs 12/21/22 06:19 12/21/22 06:19 Labs: Laboratory Results - last 24 hr 12/21/22 12/21/22 06:19 06:19 WBC 2.4 L D RBC 3.30 L Hgb 10.8 L Hct 31.4 L MCV 95.3 MCH 32.8 MCHC 34.4 RDW 14.4 Plt Count 96 L Neut % (Auto) 51.1 Lymph % (Auto) 34.3 [place] % (Auto) 11.0 Eos % (Auto) 3.1 Baso % (Auto) 0.5 Neut # (Auto) 1200 L Lymph # (Auto) 800 L [place] # (Auto) 300 Eos # (Auto) 100 Baso # (Auto) 0 Sodium 140 Potassium 4.2 Chloride 114 H Carbon Dioxide 19 L BUN 20 H Creatinine 0.83 Estimated GFR > 60 BUN/Creatinine Ratio 24.1 H Glucose 91 Calcium 8.4 PFSH Social History household members: spouse and children Smoking Status: Former smoker alcohol intake: never Assessment & Plan Assessment and plan (1) Cellulitis: Qualifiers: Laterality: right Site of cellulitis: extremity Site of cellulitis of extremity: lower extremity Qualified Code(s): L03.115 - Cellulitis of right lower limb Status: Acute Plan: -with kendrick wound -changed abx to cefepime to cover pseudomonas -discussed case with Dr. Rasheed wound care who saw patient and placed dressing orders -Elevate the affected area/limb -Pain medications when necessary -MRSA screen negative, stopped vanc -f/u final wound cultures. Currently growing light GNB. -blood cultures negative (2) Acute kidney injury: Status: Resolved Plan: -hold diuretics -monitor UOP. 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 Patient wants to be home before the weekend. Time Spent With Patient Time with patient: 50 to 69 minutes with 50% spent counseling/coordinating care Quality VTE Deep Vein Thrombosis/Pulmonary Embolism Present on Admission: No
[2022-12-21 16:00] VITALS: BP 112/49; PULSE 72; RESP 16; TEMP 36.6; O2SAT 100
--- NOTE | 2022-12-21 16:54 | PC.NURSE ---
Day shift: Obtained wound care supplies from wound RN Thea. Cleaned wound w/ NS, applied dressing using sterile gloves. Wound is approximately 1 inch wide in diameter w/ yellow slough. Hydrofera blue applied onto wound then covered with ABD pad plus kerlex. Tetragrip placed on both lower extremities after correct size obtained with wound care nurse. patient tolerated well, will continue to monitor.
[2022-12-22] VITALS: BP 107/52; PULSE 67; RESP 18; TEMP 36.4; O2SAT 98
[2022-12-22] MEDS: ACETAMINOPHEN 325 MG TABLET 650 MG PO (00:26)
[2022-12-22 06:25] LABS: Add Manual Diff / Slide Review NO; Basophils Absolute Auto 0 /uL (0-100); Basophils Percent Auto 0.7 % (0-2); Eosinophils Absolute Auto 100 /uL (0-450); Eosinophils Percent Auto 4.3 % (2-4); Hematocrit 28.3 % (36-46); Hemoglobin 9.6 g/dL (12.0-16.0); Lymphocytes Absolute Auto 900 /uL (1100-4500); Lymphocytes Percent Auto 39.7 % (25-40); Mean Corpuscular Hemoglobin 32.5 PG (26-34); Mean Corpuscular Volume 95.5 fL (80-100); Monocytes Absolute Auto 200 /uL (0-900); Monocytes Percent Auto 10.9 % (3-14); Neutrophils Absolute Auto 1000 /uL (1500-7000); Neutrophils Percent Auto 44.4 % (50-75); Platelet Count 88 X10^3/uL (150-400); Red Blood Cell Count 2.96 X10^6/uL (4.0-5.2); Red Cell Distribution Width 14.7 % (11.6-14.8); White Blood Cell Count 2.2 X10^3/uL (4.5-11.0)
[2022-12-22 06:41] LABS: BUN Creatinine Ratio 18.5 (6-22); Blood Urea Nitrogen 15 mg/dL (7-17); Calcium 8.1 mg/dL (8.4-10.2); Carbon Dioxide 20 mmol/L (22-32); Chloride 115 mmol/L (98-107); Estimated Glomerular Filt Rate > 60 mL/min (>60); Glucose 89 mg/dL (80-110); HEMOLYSIS < 15 (0-50); Potassium 4.2 mmol/L (3.4-5.1); Sodium 139 mmol/L (137-145)
[2022-12-22 08:00] VITALS: BP 101/52; PULSE 62; RESP 22; TEMP 36.3; O2SAT 96
--- NOTE | 2022-12-22 08:12 | PC.NURSE ---
Day shift: Patient bruises easily, notable scattered bruising on extremities and on neck from scratching. Clarified with MD White and pharmacy regarding morning Heparin, both of whom said OK to give.
[2022-12-22] MEDS: CEFEPIME 2 GM in SODIUM CHLORIDE 0.9% 100 ML IV (09:54)
[2022-12-22] MEDS: HEPARIN 5,000 UNIT/ML VIAL 5000 UNIT SUBCUT (09:54)
--- NOTE | 2022-12-22 12:09 | PC.NURSE ---
Discharge education and wound care instructions given to patient and family member, patient and family verbalized understanding and all questions answered. All belongings are with patient, no items locked in safe. IV removed. ANTHROPOLOGIST wheeled patient down to private vehicle.
--- NOTE | 2022-12-22 20:22 | P.DS_ITS ---
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 The patient has a chronic wound on her right kendrick in the last 6-weeks treated in the wound clinic and have wound packing for the last 8 days. She also had ultrasound on lower extremities which was negative for DVT. Has not been taken any antibiotics. She is traveling from [place], currently visiting her sister. Denies any other symptoms besides feeling cold and feverish. In the ER she was started on ceftriaxone and vancomycin. Discharge Providers Provider Date of admission: 12/20/22 02:13 Discharge Date: 12/22/22 Primary care physician: Doctor Margaret MD Consults: 12/20/22 03:56 Consult to Discharge Planning Routine Comment: 12/20/22 09:59 Consult to Wound Care Routine Comment: Consulting Provider: El[facility] Wound [facility] Discharge provider: Oren White MD Summary Hospital Course Discharge Diagnosis: 1. Cellulitis 2. TONY 3. DE SANTIAGO cirrhosis 4. Pancytopenia secondary to cirrhosis Hospital Course: Ms. Bruno presented to the hospital with a kendrick wound that was not healing well. She was found to have cellulitis. Ultimately her micro cultures grew Enterobacter in the wound, and gram stain additionally noted GPCs not further speciated. She was initially on broad spectrum antibiotics and she improved. Wound care physician did see her and recommended follow up on discharge. She was discharged with an additional week of doxycycline and ciprofloxacin for her infection. She was planned to follow up with wound care within one week. Exam Vital Signs (past 8 hours): Oxygen Delivery Method Room Air Oxygen Flow Rate 0 Narrative Exam Narrative: GEN: no acute distress HEENT: moist mucous membranes, PERRL NECK: trachea midline, no JVD CV: regular rate and rhythm, no murmurs PULM: clear bilaterally ABD: soft, nontender, nondistended, no organomegaly EXT: RLE mid-kendrick quarter-sized wound with minimal erythema NEURO: awake, alert, oriented, no focal deficits Objective Labs 12/22/22 06:00 12/22/22 06:00 Labs: Laboratory Results - last 24 hr 12/22/22 12/22/22 06:00 06:00 WBC 2.2 L RBC 2.96 L Hgb 9.6 L Hct 28.3 L MCV 95.5 MCH 32.5 MCHC 34.0 RDW 14.7 Plt Count 88 L Neut % (Auto) 44.4 L Lymph % (Auto) 39.7 Sharkey % (Auto) 10.9 Eos % (Auto) 4.3 H Baso % (Auto) 0.7 Neut # (Auto) 1000 L Lymph # (Auto) 900 L Sharkey # (Auto) 200 Eos # (Auto) 100 Baso # (Auto) 0 Sodium 139 Potassium 4.2 Chloride 115 H Carbon Dioxide 20 L BUN 15 Creatinine 0.81 Estimated GFR > 60 BUN/Creatinine Ratio 18.5 Glucose 89 Calcium 8.1 L [facility] Social History household members: spouse and children Smoking Status: Former smoker alcohol intake: never Discharge Plan Discharge Plan Patient Disposition: Home Provider Discharge Comment: Ms. Bruno was admitted with a skin wound/ulcer and an infection. She improved with antibiotics. She should take these two antibiotics for one more week. She is referred to see Dr. Rasheed, the wound doctor, and should call his clinic to setup an appointment if able to. Discharge orders & Medications Prescriptions: New doxycycline hyclate 100 mg tablet 100 mg PO BID Qty: 14 0RF ciprofloxacin HCl 500 mg tablet 500 mg PO BID Qty: 14 0RF Continued torsemide 20 mg tablet 40 mg PO BID potassium chloride 8 mEq capsule, extended release 8 meq PO 3XW Patient Comments: Monday spironolactone 100 mg tablet 200 mg PO DAILY clobetasol 0.05 % cream 1 applic topical BID PRN (Reason: Skin Irritation) mycophenolate mofetil 500 mg tablet 500 mg PO BID febuxostat 40 mg tablet 40 mg PO WEEKLY Patient Comments: take it if feeling UTI coming on Prolia 60 mg/mL Syringe See Rx Instructions .ROUTE .COMPLEX Rx Instructions: patient sees MD every 6 months for medication in clinic. loratadine 10 mg Capsule 10 mg PO DAILY Follow up/Referrals: Dandre Rasheed MD [Physician] - 1 Week (seen by Dr. Rasheed in hospital for wound, follow up in clinic) Miscellaneous,DoctorMD [Primary Care Provider] - Skin/Wound/Dressing Care Dressing: hydrofera blue can be left on for 5 days, change no later than 12/[address] Rasheed instruction. ABD pad over blue dressing, wrap with kerlex, then tetragrip. Other wound treatment: OK to clean wound on 12/26 or with dressing change. tetragrip can be handwashed and reused. Visit Report/Discharge Packet Instructions: DI for Cellulitis -- Adult, How to Prevent Falls Stand Alone Forms: Patient Portal/API, Stroke Signs & Symptoms Discharge Data Primary Care Provider: Doctor Margaret Attending Provider: Justo Urena Admit Date/Time: 12/20/22 02:13 Discharges patient from system. Discharge Date/Time: 12/22/22 12:12 Quality VTE Deep Vein Thrombosis/Pulmonary Embolism Present on Admission: No
== END 2022-12-22 12:12 | disposition home or self-care (01) ==
LOC: ED 12-20 02:09 → AC 12-20 02:14
PROVIDERS: Student in an Organized Health Care Education/Training Program; Admitting Provider Internal Medicine; Emergency Provider Emergency Medicine; Visit Provider Internal Medicine
DX: L03.115 Cellulitis of right lower limb (principal); N17.9 Acute kidney failure, unspecified; K74.60 Unspecified cirrhosis of liver; K75.81 Nonalcoholic steatohepatitis (NASH); L97.222 Non-pressure chronic ulcer of left calf with fat layer exposed; D61.818 Other pancytopenia
CPT/HCPCS: 36415; 73590; 80048; 80053; 81001; 83605; 83880; 84145; 85025; 85651; 86140; 87040; 87070; 87075; 87077; 87186; 87205; 87797; 96361; 96365; 96366; 96367; 96372; 96375; 96376; 99284; G0378; J0692; J0696; J1170; J1644

== ENCOUNTER → 2022-12-30 13:31 | Outpatient (CLI) | payer OTHER, SELFPAY ==
[2022-12-20 03:51] VITALS: BMI 29.2
== END ==
PROVIDERS: PCP Internal Medicine; Referring Provider Internal Medicine; Visit Provider Physician Assistant
DX: I87.2 Venous insufficiency (chronic) (peripheral) (principal); L97.812 Non-pressure chronic ulcer of other part of right lower leg with fat layer exposed; L93.0 Discoid lupus erythematosus; R53.1 Weakness; R60.0 Localized edema; L98.8 Other specified disorders of the skin and subcutaneous tissue
CPT/HCPCS: 11042; 99204; 99213

== ENCOUNTER → 2023-01-03 11:38 | Outpatient (CLI) | payer OTHER, SELFPAY ==
[2022-12-20 03:51] VITALS: BMI 29.2
== END ==
PROVIDERS: PCP Internal Medicine; Referring Provider Internal Medicine; Visit Provider Surgery
DX: I87.2 Venous insufficiency (chronic) (peripheral) (principal); L97.812 Non-pressure chronic ulcer of other part of right lower leg with fat layer exposed; R60.0 Localized edema; M32.9 Systemic lupus erythematosus, unspecified
CPT/HCPCS: 11042; 99213